=== PATIENT | female | born 1970 | race Caucasian/White ===

== ENCOUNTER 2017-12-05 12:16 | Emergency (ER) | payer OTHER ==
[2017-12-05 12:28] VITALS: BP 135/78
--- NOTE | 2017-12-05 12:59 | UC ---
Bite Injury/Animal HPI - HPI Summary HPI Summary: Patient states she was walking her dog on a leash and encountered a neighbor with her dog. Both dogs got into a fight and patient attempted to separate them as the other dog was biting her dog's collar. She got bitten on her left fourth finger while doing so. This happended on 2 days ago, at approximately 5:30p. She has been dressing it and applying antibiotic ointment but she states the wound looks as if its getting infected. Last Tetanus vaccine was September 2016. She does not know if dog has rabies vaccine up to date but states the dog looks like he is very well taken care off. Cannot describe the breed but is approx 50 lbs. . Denies any fever or chills, any axillary LNE or tenderness - History of Current Complaint Chief Complaint: UCBiteInjury Stated Complaint: DOG BITE Time Seen by Provider: 12/05/17 12:40 Hx Obtained From: Patient ?: No Severity Currently: Mild Severity Initially: Moderate Pain Intensity: 4 Onset/Duration: Sudden Onset, Lasting Days Type of Bite: Animal Has Animal Been Immunized?: Unknown Character: Puncture, Abrasion/Laceration Aggravating Factor(s): Nothing Alleviating Factor(s): Nothing Associated Signs And Symptoms: Positive: Negative Hx of Bite: Provoked by: - patient trying to separate her dog and the offending dog while in a fight Animal Available for Observation: Yes Animal Control Notified: Yes - Risk Factors Infection/Sepsis Risk Factors: Delay in Initial Treatment - Allergies/Home Medications Allergies/Adverse Reactions: Allergies Allergy/AdvReac Type Severity Reaction Status Date / Time No Known Allergies Allergy Verified 12/05/17 12:28 PMH/Surg Hx/FS Hx/Imm Hx Previously Healthy: Yes - Surgical History Surgical History: Yes - Family History Known Family History: Positive: Diabetes - Social History Alcohol Use: Daily Substance Use Type: None Smoking Status (MU): Never Smoked Tobacco Review of Systems Constitutional: Negative Skin: Other - laceration from bite All Other Systems Reviewed And Are Negative: Yes Physical Exam Triage Information Reviewed: Yes Appearance: Well-Appearing, No Pain Distress, Well-Nourished Vital Signs: Initial Vital Signs Temp 97.5 F 12/05/17 12:23 Pulse 91 12/05/17 12:23 Resp 20 12/05/17 12:23 BP 135/78 12/05/17 12:23 Pulse Ox 98 12/05/17 12:23 Vital Signs Reviewed: Yes Eyes: Positive: Conjunctiva Clear ENT: Positive: Hearing grossly normal, Pharynx normal Neck: Positive: Supple, Nontender, No Lymphadenopathy Respiratory: Positive: Chest non-tender, Lungs clear, Normal breath sounds, No respiratory distress Cardiovascular: Positive: RRR, No Murmur, Pulses Normal, Brisk Capillary Refill Abdomen Description: Positive: Nontender Musculoskeletal: Positive: Strength Intact, ROM Intact, No Edema Skin: Positive: Other - jagged laceration on ventral radial aspect middle phalanx 3rd left finger 17 mmm in length, covered in ointment, no discharge or bleeding noted. Small abrassion on ulnar aspect on distal phalanx of same finger , non bleeding, no discharge, no surrounding tenderness or erythema of soft tissue Bite Injury Course/Dx - Course Course Of Treatment: Patient sustained a dog bite on left 3rd finger two days ago by a leashed dog that belongs to a neighbor while she tried to separate her dog from offending animal. Animal control was called and rabies protocol was activated. Tdap is UTD, patient to start augmentin as prescribed and follow up with PCP in a week. - Differential Dx/Diagnosis Provider Diagnoses: Dog bite Discharge - Sign-Out/Discharge Documenting (check all that apply): Patient Departure All imaging exams completed and their final reports reviewed: No Studies - Discharge Plan Condition: Stable Disposition: HOME Patient Education Materials: Animal Bite (ED), Amoxicillin/Clavulanate Potassium (By mouth) Referrals: No Primary Care Phys,NOPCP [Primary Care Provider] - [facility] – [place] [facility] [Outside] - Billing Disposition and Condition Condition: STABLE Disposition: Home
== END 2017-12-05 13:35 | disposition home or self-care (01) ==
LOC: UCEAST 12:16
DX: S61.213A Laceration without foreign body of left middle finger without damage to nail, initial encounter (principal); W54.0XXA Bitten by dog, initial encounter; Y93.01 Activity, walking, marching and hiking; Y92.9 Unspecified place or not applicable
CPT/HCPCS: 99202; G0463